=== PATIENT | female | born 1990 | race Two or more races ===

== ENCOUNTER 2016-09-17 16:39 | Emergency (ER) | payer OTHER ==
[~2016-09-17] VITALS: Ht 162.6 cm; Wt 56.7 kg
[2016-09-17 17:10] LABS: CONTROL LINE UCG INT CTR LINE PRESENT
[2016-09-17] MEDS ORDERED: NS 1,000 ML IV ONE (17:15)
[2016-09-17] MEDS ORDERED: MORPHINE 4 MG/ML 1ML SYRINGE IV ONE (17:15)
[2016-09-17] MEDS ORDERED: ONDANSETRON 4MG/2ML VIAL (J2405) IV ONE (17:15)
[2016-09-17 17:56] LABS: BASO # 0.1 K/mm3 (0.0-0.2); BASO % 0.9 % (0.0-1.0); EOS # 0.2 K/mm3 (0.0-0.50); EOS % 2.6 % (0.0-3.0); LARGE UNSTAINED CELL # 0.1 K/mm3 (0.0-0.4); LARGE UNSTAINED CELL % 1.3 % (0.0-4.0); LYMPH # 0.9 K/mm3 (1.5-6.5); LYMPH % 11.8 % (24.0-44.0); MEAN CORPUSCULAR HEMOGLOBIN 31.9 pg (27.0-33.0); MEAN CORPUSCULAR HGB CONC 35.9 g/dl (32.0-36.5); MEAN CORPUSCULAR VOLUME 88.9 fl (80.0-96.0); MONO # 0.4 K/mm3 (0.0-0.8); MONO % 5.1 % (0.0-5.0); NEUTROPHILS # 5.6 K/mm3 (1.8-7.7); NEUTROPHILS % 78.3 % (36.0-66.0); PLATELET COUNT, AUTOMATED 230 k/mm3 (150-450); RED CELL DISTRIBUTION WIDTH 12.8 % (11.5-14.5); WHITE BLOOD COUNT 7.1 K/mm3 (4.0-10.0)
--- NOTE | 2016-09-17 17:57 | REP ---
Clinical: Left flank pain. Findings: Lung bases are clear. Visualized heart and pericardium normal. Liver, spleen, pancreas, gallbladder, bilateral adrenal glands and kidneys are normal for noncontrast evaluation. No hydronephrosis, perinephric stranding, intrarenal or obstructing ureteral calculi are identified. The enteric system is without obstruction or acute inflammatory process. Normal terminal ileum and appendix identified in the right lower quadrant. Pelvis demonstrates normal bladder and age-appropriate uterus/adnexa. No pelvic fluid or ascites. No free air. No adenopathy. Abdominal aorta normal. Musculoskeletal structures are intact. Impression: Normal noncontrast CT of the abdomen and pelvis. Signed by Naresh Peña MD 09/17/2016 05:49 P
[2016-09-17 18:06] LABS: ALBUMIN 3.6 GM/DL (3.2-5.2); ALBUMIN/GLOBULIN RATIO 0.88 (1.00-1.93); ALKALINE PHOSPHATASE 91 U/L (45-117); ALT/SGPT 15 U/L (12-78); ANION GAP 7 MEQ/L (8-16); AST/SGOT 10 U/L (15-37); BILIRUBIN,DIRECT < 0.1 MG/DL (0.0-0.2); BILIRUBIN,TOTAL 0.3 MG/DL (0.2-1.0); BLOOD UREA NITROGEN 9 MG/DL (7-18); CALCIUM LEVEL 8.5 MG/DL (8.5-10.1); CARBON DIOXIDE LEVEL 27 MEQ/L (21-32); CHLORIDE LEVEL 108 MEQ/L (98-107); CREATININE FOR GFR 0.61 MG/DL (0.55-1.02); GLOMERULAR FILTRATION RATE > 60.0 (>60); GLUCOSE, FASTING 98 MG/DL (70-105); POTASSIUM SERUM 3.4 MEQ/L (3.5-5.1); SODIUM LEVEL 142 MEQ/L (136-145); TOTAL PROTEIN 7.7 GM/DL (6.4-8.2)
[2016-09-17] MEDS ORDERED: CIPROFLOXACIN 400 MG in APPROPRIATE DILUENT 1 EA IV ONE (18:15)
[2016-09-17] MEDS ORDERED: ACETAMINOPHEN TAB 650MG DOSE (2X325MG) PO ONE (19:30)
[2016-09-17] MEDS ORDERED: ONDANSETRON 4 MG ORAL DISINTEGRATING TAB (S0181) PO ONE (19:30)
[2016-09-17] MEDS ORDERED: ZOFR4TAB3 PO (19:43)
[2016-09-17] MEDS ORDERED: CIPR-249 PO (19:43)
[2016-09-17 20:02] VITALS: BP 115/74
== END 2016-09-17 20:04 | disposition home or self-care (01) ==
LOC: M ED 16:39
DX: N39.0 Urinary tract infection, site not specified (principal); R10.9 Unspecified abdominal pain
CPT/HCPCS: 36415; 74176; 80048; 80076; 81001; 83690; 84703; 85025; 87086; 96374; 96375; 99284; J0744

== ENCOUNTER → 2016-12-09 | Outpatient (REF) | payer OTHER ==
[~2016-12-09] MED LIST: CIPR-249 PO; ZOFR4TAB3 PO
== END ==
LOC: M SFHCPLAZ 11:32
PROVIDERS: ATTEND Family Medicine
DX: R30.0 Dysuria (principal)

== ENCOUNTER → 2016-12-23 | Outpatient (REF) | payer OTHER | LOC: M SFHCPLAZ 16:59 | PROVIDERS: ATTEND Family Medicine | DX: Z01.419 Encounter for gynecological examination (general) (routine) without abnormal findings (principal); Z11.51 Encounter for screening for human papillomavirus (HPV); R87.610 Atypical squamous cells of undetermined significance on cytologic smear of cervix (ASC-US) ==

== ENCOUNTER → 2016-12-27 | Outpatient (CLI) | payer OTHER ==
--- NOTE | 2016-12-28 05:13 | REP ---
Clinical: Pelvic pain . Technique: Transabdominal pelvic ultrasound followed by transvaginal examination for better evaluation of the endometrium and adnexa with color Doppler evaluation of the ovaries. Findings: Bladder is unremarkable and measures approximately 7.2 x 6.6 x 4.6 cm . Normal anteverted uterus measures 8.8 x 3.4 x 5.8 cm . The endometrial complex measures 3.5 mm thickness. No discrete uterine or endometrial abnormalities are appreciated. Bilateral ovaries are normal in appearance and vascularity without evidence for torsion. Right ovary measures 3.5 x 2.3 x 2.0 cm ; R I = 0.70 . Left ovary measures 3.6 x 2.6 x 2.3 cm ; R I = 0.54 . No pelvic fluid or adnexal mass lesion . Impression: 1. Normal pelvic ultrasound
== END ==
LOC: M WHC 12:53
PROVIDERS: ATTEND Family Medicine
DX: R10.2 Pelvic and perineal pain (principal)